=== PATIENT | female | born 1980 | race American Indian/Alaskan Native ===

== ENCOUNTER 2018-02-01 10:02 | Observation (INO) | payer MEDICAID ==
[2018-01-26 13:14] LABS: Basophils % (Auto) 0.3 % (0.0-1.8); Eosinophils # (Auto) 0.2 K/mm3 (0.0-0.4); Eosinophils % (Auto) 1.6 % (0.0-4.3); Hematocrit 36.9 % (30.3-42.9); Hemoglobin 12.1 gm/dl (10.1-14.3); Lymphocytes # (Auto) 3.1 K/mm3 (1.2-5.4); Lymphocytes % (Auto) 31.6 % (13.4-35.0); Mean Corpuscular HGB Conc 33 % (30-34); Mean Corpuscular Hemoglobin 32 pg (28-32); Mean Corpuscular Volume 96 fl (79-97); Monocytes # (Auto) 0.7 K/mm3 (0.0-0.8); Monocytes % (Auto) 7.6 % (0.0-7.3); Platelet Count 331 K/mm3 (140-440); Red Blood Count 3.83 M/mm3 (3.65-5.03); Red Cell Distribution Width 13.6 % (13.2-15.2)
--- NOTE | 2018-01-26 13:23 | Anesthesia Consultation ---
Anesthesia Consult and Med Hx Date of service: 01/26/18 - Airway Anesthetic Teeth Evaluation: Dentures ROM Head & Neck: Adequate Mental/Hyoid Distance: Adequate Mallampati Class: Class II Intubation Access Assessment: Probably Good - Pulmonary Exam CTA: Yes - Cardiac Exam Cardiac Exam: RRR - Pre-Operative Health Status ASA Pre-Surgery Classification: ASA2 Proposed Anesthetic Plan: General - Pulmonary Hx Smoking: No (2nd hand) - Cardiovascular System Hx Hypertension: Yes (since 2009) Hx Heart Murmur: Yes (As a child, resolved) - Central Nervous System Hx Neuromuscular Disorder: Yes (migraines. lumbar radiculopathy) Hx Back Pain: Yes Hx Psychiatric Problems: No - Gastrointestinal Hx Gastroesophageal Reflux Disease: Yes (s/p gastric bypass) - Hematic Hx Anemia: Yes - Other Systems Hx Alcohol Use: Yes (occas) Hx Substance Use: Yes (Marijuana approx 3 times/week)
[2018-02-01] MEDS ORDERED: NACL BACTERIOSTATIC INFILTRATI ONE (10:30)
[2018-02-01] MEDS ORDERED: LACTATED RINGERS 1,000 ML IV SCH (11:00)
[2018-02-01] MEDS ORDERED: ANCEF/STERILE WATER 2 GM/20 ML 2 GM/20 ML SYRINGE IV SCH (11:00)
--- NOTE | 2018-02-01 11:00 | History and Physical Report ---
History of Present Illness Date of examination: 02/01/18 ( ) Chief complaint: Symptomatic uterine fibroids History of present illness: Pt is a 37yo BF LMP 01/19/18 presents for surgical evaluation and treatment of symptomatic uterine fibroids. She complains of heavy prolonged vaginal bleeding and pelvic pain unresponsive to hormonal therapy and she desires a Hysterectomy with removal of ovaries due to a strong family history of ovarian cancer. Pelvic u/s showed a slightly enlarged uterus with 2 small fibroids and normal appearing ovaries bilaterally. Endometrial biopsy was benign. She is therefore scheduled for a Robotic Assisted Total Hysterectomy with Bilateral SalpingoOophorectomy. Past History Past Medical History: hypertension Past Surgical History: gastric bypass, other (BTL) [employer] History: fibroids Family/Genetic History: cancer (Ovarian cancer) Social history: no significant social history, Medications and Allergies Allergies Allergy/AdvReac Type Severity Reaction Status Date / Time ibuprofen Allergy Bleeding Verified 01/25/18 14:39 Home Medications Medication Instructions Recorded Confirmed Last Taken Type Cyclobenzaprine [Flexeril] 10 mg PO TID 01/25/18 01/25/18 Unknown History Ferrous Sulfate [Iron] 325 mg PO BID 01/25/18 01/25/18 Unknown History Folic Acid 20 mg PO QDAY 01/25/18 01/25/18 Unknown History Gabapentin [Neurontin] 600 mg PO DAILY 01/25/18 01/25/18 Unknown History Gabapentin [Neurontin] 900 mg PO BID 01/25/18 01/25/18 Unknown History Tizanidine HCl [Zanaflex] 4 mg PO HS 01/25/18 01/25/18 Unknown History amLODIPine [Norvasc] 10 mg PO DAILY 01/25/18 01/26/18 Unknown History Review of Systems All systems: negative - Vital Signs Vital signs: Vital Signs Temp Pulse Resp BP 98.6 F 82 18 140/90 01/26/18 12:30 01/26/18 12:30 01/26/18 12:30 01/26/18 12:30 Temp Pulse Resp BP Pulse Ox 98.6 F 82 18 140/90 01/26/18 12:30 01/26/18 12:30 01/26/18 12:30 01/26/18 12:30 - Physical Exam Breasts: Positive: deferred Cardiovascular: Regular rate Lungs: Positive: Clear to auscultation Abdomen: Positive: normal appearance, soft Genitourinary (Female): Positive: normal external genitalia Uterus: Positive: enlarged Extremities: Positive: normal Results Result Diagrams: 01/26/18 12:45 All other labs normal. Ultrasound: report reviewed Assessment and Plan - Patient Problems (1) Uterine fibroid Onset Date: 02/01/18 Current Visit: Yes Status: Acute Qualifiers: Uterine leiomyoma location: intramural and subserous Qualified Code(s): D25.1 - Intramural leiomyoma of uterus; D25.2 - Subserosal leiomyoma of uterus Plan to address problem: A: Symptomatic uterine fibroids Menorrhagia Dysmenorrhea P: Admit for a Robotic Assisted Total Hysterectomy with Bilateral SalpingoOophorectomy (2) Menorrhagia with irregular cycle Onset Date: 02/01/18 Current Visit: Yes Status: Acute (3) Dysmenorrhea Onset Date: 02/01/18 Current Visit: Yes Status: Acute
[2018-02-01] MEDS ORDERED: NEOSPORIN GU IR ONE ×2 (11:04→13:12)
[2018-02-01] MEDS ORDERED: SUBLIMAZE IV NR (11:08)
[2018-02-01] MEDS ORDERED: VERSED IV PRN (11:08)
[2018-02-01] MEDS ORDERED: DECADRON IV NR (11:08)
[2018-02-01] MEDS ORDERED: MARCAINE 0.5% INFILTRATI ONE (11:39)
[2018-02-01] MEDS ORDERED: SUBLIMAZE ONE (11:52)
[2018-02-01] MEDS ORDERED: DIPRIVAN 10 MG/ML IV ONE (11:52)
[2018-02-01] MEDS ORDERED: XYLOCAINE MPF 2% ONE (11:53)
[2018-02-01] MEDS ORDERED: ZEMURON IV ONE (11:53)
[2018-02-01] MEDS ORDERED: NEURONTIN PO NR (12:00)
[2018-02-01] MEDS ORDERED: DECADRON ONE (12:40)
[2018-02-01] MEDS ORDERED: DILAUDID ONE (12:41)
[2018-02-01] MEDS ORDERED: ROBINUL ONE (12:57)
[2018-02-01] MEDS ORDERED: ZOFRAN ONE (12:58)
[2018-02-01] MEDS ORDERED: NEO SYNEPHRINE ONE (12:58)
[2018-02-01] MEDS ORDERED: BLOXIVERZ ONE (12:59)
[2018-02-01] MEDS ORDERED: NACL 0.9% IR ONE ×2 (13:12→13:13)
[2018-02-01] MEDS ORDERED: TYLENOL PO PRN (13:56)
[2018-02-01] MEDS ORDERED: ZOFRAN IV PRN (13:56)
[2018-02-01] MEDS ORDERED: NARCAN 0.4 MG/1 ML IV PRN (13:56)
[2018-02-01] MEDS ORDERED: D5LR 1,000 ML IV SCH (14:00)
[2018-02-01] MEDS ORDERED: CLIMARA TD SCH ×2 (14:00→15:00)
--- NOTE | 2018-02-01 14:13 | Operative Report ---
Operative Report Operative Report: Date of procedure: 02/01/2018 Pre-operative diagnosis: 1. Symptomatic uterine fibroids 2. Menorrhagia 3. Dysmenorrhea Post-operative diagnosis: Same Procedure name(s): 1. Robotic-assisted total hysterectomy 2. Bilateral salpingo-oophorectomy Surgeon: Slade Delarosa MD Geriatric Nurse Practitioner: NAT Huitron Anesthesia: JAIME Block followed by general endotracheal intubation EBL: 50 mL Findings: An 8-10 week size myomatous uterus with tubes showed evidence of previous tubal ligation bilaterally and normal ovaries bilaterally. Procedure: After the patient's first correctly identified she was prepped and draped in the usual sterile fashion and placed in the dorsolithotomy position. The bladder was first catheterized using Cast catheter and the speculum was placed in the vagina and the anterior lip of the cervix was grasped using a single-tooth tenaculum, and the medium Vesicare cup was placed. The tenaculum and speculum was then removed from the vagina and attention was then turned to the abdomen. The skin knife was used to make a small incision approximately 5 cm above the umbilicus through which a 12 mm trocar was placed under direct visualization. After adequate amount of abdominal insufflation visualization of the pelvic organs found the uterus to be enlarged and the tubes and ovaries were found to be normal bilaterally. A right and left paramedian incision was made through which the 8 mm trochars were placed under direct visualization and a 5 mm trocar was placed in the right lower quadrant. The patient was then placed in steep Trendelenburg positioning and the robot was docked on the patient's left side. After all the robotic ports were connected and adequate functioning of the robotic arms were tested the surgeon then proceeded to the console to begin the hysterectomy. First the left round ligament was grasped, cauterized and cut, the left infundibulopelvic ligament was grasped, cauterized and cut, thus freeing the left ovary from the left pelvic sidewall. The same procedure was performed on the right. The right round ligament was grasped, cauterized and cut, the right infundibulopelvic ligament was grasped, cauterized and cut, thus freeing the right ovary from the right pelvic sidewall. The bladder flap was taken down anteriorly and the uterine vessels were grasped, cauterized and cut bilaterally. The cardinal ligaments were sequentially grasped, cauterized and cut down to the level of the uterosacral ligaments. At this time the posterior colpotomy was performed over the Vcare cup, and the cervix was circumscribed beginning posteriorly and meeting anteriorly until the cervix was freed. The cervix and uterus was then removed through the vagina and sent to pathology. The vaginal cuff was then closed using 2-0 Vloc suture in a running fashion. Irrigation was then performed and after good hemostasis was achieved the procedure was considered complete. The Tisseel sealant was then sprayed across the vaginal cuff site, and after excellent hemostasis was assured Interceed was placed across the vaginal cuff site. All instruments were then removed from the abdominal cavity. And each incision was closed using 0 Vicryl suture in a [id number] configuration on the fascia followed by 4-0 Monocryl suture in a sub-cuticular fashion on the skin. Each incision was also infiltrated using 0.5% Marcaine solution. The vaginal pack was removed. The patient tolerated the procedure well and was transported to the recovery room in stable condition.
[2018-02-01] MEDS ORDERED: LACTATED RINGERS 1,000 ML ONE (14:19)
[2018-02-01] MEDS: NORCO 5/325 PO PRN ×2 (16:40→22:16)
[2018-02-01] MEDS: MILK OF MAGNESIA PO PRN (19:51)
[2018-02-01] MEDS: PERCOCET 5/325 PO PRN (19:52)
[2018-02-01] MEDS ORDERED: ANCEF/NS 1 GM/50 ML 1 GM/50 ML BAG IV SCH (20:00)
[2018-02-01] MEDS: COLACE PO SCH (22:17)
[2018-02-02] MEDS: AMBIEN PO PRN ×2 (00:12→00:28)
[2018-02-02] MEDS ORDERED: ANCEF/NS 1 GM/50 ML 1 GM/50 ML BAG IV SCH (05:30)
[2018-02-02] MEDS: PERCOCET 5/325 PO PRN ×2 (06:03→11:51)
[2018-02-02 06:41] LABS: Hematocrit 34.4 % (30.3-42.9); Hemoglobin 11.2 gm/dl (10.1-14.3)
[2018-02-02] MEDS: NORCO 5/325 PO PRN (08:00)
[2018-02-02] MEDS: COLACE PO SCH (09:44)
[2018-02-02] MEDS: MILK OF MAGNESIA PO PRN (09:44)
--- NOTE | 2018-02-02 10:04 | Progress Note ---
Assessment and Plan - Patient Problems (1) Uterine fibroid Onset Date: 02/01/18 Current Visit: Yes Status: Resolved Qualifiers: Uterine leiomyoma location: intramural and subserous Qualified Code(s): D25.1 - Intramural leiomyoma of uterus; D25.2 - Subserosal leiomyoma of uterus (2) Menorrhagia with irregular cycle Onset Date: 02/01/18 Current Visit: Yes Status: Resolved (3) Dysmenorrhea Onset Date: 02/01/18 Current Visit: Yes Status: Resolved (4) S/P robot-assisted surgical procedure Onset Date: 02/02/18 Current Visit: Yes Status: Resolved Plan to address problem: A: S/P Robotic Assisted Total Hysterectomy with BSO - POD #1 Doing well P: May go home this afternoon Subjective - Subjective Date of service: 02/02/18 Principal diagnosis: s/p RATH - POD #1 Interval history: Pt is feeling well, but states she vomited this morning because she didn't take her phenergan. Discussed findings at surgery. She is ambulating and voiding without difficulty. Patient reports: appetite normal, voiding normally, pain well controlled, ambulating normally, nauseated, no flatus Objective - Vital Signs Latest vital signs: Vital Signs Temp Pulse Resp BP BP Pulse Ox 02/02/18 06:21 98.4 F 68 18 128/76 98 02/02/18 00:00 98.4 F 56 L 18 128/73 96 02/01/18 22:16 18 02/01/18 20:00 98.2 F 75 18 135/78 99 02/01/18 19:52 18 02/01/18 16:00 97 F L 98 H 16 126/73 100 02/01/18 14:55 94 H 15 134/82 100 02/01/18 14:40 97.2 F L 95 H 16 132/83 100 02/01/18 14:25 95 H 16 141/89 100 02/01/18 14:20 97 H 17 139/92 100 02/01/18 14:15 98 H 17 133/89 100 02/01/18 14:10 97 F L 90 16 133/85 100 02/01/18 12:00 64 14 143/89 100 02/01/18 11:55 66 13 142/75 100 02/01/18 11:50 74 19 132/91 100 02/01/18 11:45 74 12 137/93 100 02/01/18 11:40 98.5 F 65 18 131/80 100 02/01/18 11:35 67 18 144/95 100 02/01/18 10:15 98.5 F 65 18 131/80 100 Intake and Output 02/01/18 02/02/18 02/02/18 22:59 06:59 14:59 Intake Total 240 240 Output Total 1100 1400 Balance -860 -1160 Intake: Oral 240 240 Output: Urine 1100 1400 Indwelling Catheter 1100 1400 Other: Total, Intake Amount 240 240 Total, Output Amount 600 600 Voiding Method Indwelling Catheter - Exam Cardiovascular: Present: Regular rate Lungs: Present: Clear to auscultation Abdomen: Present: normal appearance, soft Incision: Present: normal, dry, intact - Labs Labs: Laboratory Tests 01/26/18 01/26/18 02/01/18 12:45 12:45 10:40 WBC 9.7 RBC 3.83 Hgb 12.1 Hct 36.9 MCV 96 MCH 32 MCHC 33 RDW 13.6 Plt Count 331 Lymph % (Auto) 31.6 [place] % (Auto) 7.6 H Eos % (Auto) 1.6 Baso % (Auto) 0.3 Lymph # 3.1 [place] # 0.7 Eos # 0.2 Baso # 0.0 Seg Neutrophils % 58.9 Seg Neutrophils # 5.7 HCG, Qual Negative Blood Type B POSITIVE Antibody Screen Negative 02/02/18 06:19 WBC RBC Hgb 11.2 Hct 34.4 MCV MCH MCHC RDW Plt Count Lymph % (Auto) [place] % (Auto) Eos % (Auto) Baso % (Auto) Lymph # [place] # Eos # Baso # Seg Neutrophils % Seg Neutrophils # HCG, Qual Blood Type Antibody Screen
[2018-02-02] MEDS ORDERED: PHENERGAN PO PRN (10:25)
--- NOTE | 2018-02-02 13:30 | Discharge Summary ---
Providers - Providers Date of Admission: 02/01/18 13:56 Date of discharge: 02/02/18 Attending physician: CARINA PAGE Hospitalization Reason for admission: other (Symptomatic uterine fibroids; Menorrhagia; Dysmenorrhea) Procedure: other (Robotic Assisted Total Hysterectomy with Bilateral SalpingoOophorectomy) Incision: normal, dry, intact Other procedures: none complications: none Discharge diagnosis: other (s/p RATH with BSO) Hospital course: Pt is a 37yo BF LMP 01/19/18 who presented for surgical evaluation and treatment of symptomatic uterine fibroids. She complained of heavy prolonged vaginal bleeding and pelvic pain unresponsive to hormonal therapy and she desired a Hysterectomy with removal of ovaries due to a strong family history of ovarian cancer. She underwent an uncomplicated Robotic Assisted Total Hysterectomy with Bilateral SalpingoOophorectomy, and by POD #1 she was tolerating a reg diet without nausea or vomiting, ambulating and voiding without difficulty. She was therefore discharged to home on POD #1 in stable condition. Condition at discharge: Good Disposition: DC-01 TO HOME OR SELFCARE - Discharge Diagnoses (1) Uterine fibroid Status: Resolved Qualifiers: Uterine leiomyoma location: intramural and subserous Qualified Code(s): D25.1 - Intramural leiomyoma of uterus; D25.2 - Subserosal leiomyoma of uterus (2) Menorrhagia with irregular cycle Status: Resolved (3) Dysmenorrhea Status: Resolved (4) S/P robot-assisted surgical procedure Status: Resolved Plan - Discharge Medications Prescriptions: Docusate Sodium [Colace CAP] 100 mg PO BID #60 capsule Estradiol [Climara] 0.1 mg TD Tu@1000 #10 patch HYDROcodone/APAP 5-325 [[place] 5-325 mg TAB] 1 each PO Q6HR PRN #30 tablet PRN Reason: Pain, Moderate (4-6) - Provider Discharge Summary Activity: routine, no sex for 6 weeks, no heavy lifting 4 weeks, no strenuous exercise Diet: routine Instructions: routine Additional instructions: [] Smoking cessation referral if applicable(refer to patient education folder for contact #) [] Refer to [facility] Booklet Call your doctor immediately for: * Fever > 100.5 * Heavy vaginal bleeding ( >1 pad per hour) * Severe persistent headache * Shortness of breath * Reddened, hot, painful area to leg or breast * Drainage or odor from incision. * Keep incision clean and dry at all times and follow doctor's instructions regarding bathing/showering - Follow up plan Follow up: BESSIE MCLEAN [Other] - 7 Days CARINA PAGE MD [Staff Physician] - 14 Days
[2018-02-02 17:45] VITALS: BP 127/85
== END 2018-02-02 14:45 | disposition home or self-care (01) ==
LOC: OR 10:02 → INTOOBSV 13:56 → OB 13:56
PROVIDERS: ADMIT Obstetrics & Gynecology; ATTEND Obstetrics & Gynecology
DX: D25.9 Leiomyoma of uterus, unspecified (principal); N94.6 Dysmenorrhea, unspecified; I10 Essential (primary) hypertension
CPT/HCPCS: 36415; 58552; 64450; 84703; 85014; 85018; 85025; 86850; 86900; 86901; 88307; 96365; A4217; C1765; C9250; G0378; J0690; J1100; J1170; J2250; J2370; J2405; J2704; J2710; J3010; J7120; J7121; S2900; Q0169